=== PATIENT | female | born 1935 | race Caucasian/White ===

== ENCOUNTER 2020-05-25 10:31 | Emergency (ER) | payer MEDICARE, SELFPAY ==
[2020-05-25 10:36] VITALS: BP 129/54; PULSE 88; RESP 18; TEMP 37.4; O2SAT 97
[2020-05-25 10:49] VITALS: BP 129/54; PULSE 88; RESP 18; TEMP 37.4; O2SAT 97
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
== END 2020-05-25 11:08 | disposition home or self-care (01) ==
PROVIDERS: Emergency Provider Nurse Practitioner Family; PCP Internal Medicine
DX: L08.9 Local infection of the skin and subcutaneous tissue, unspecified (principal); S01.80XA Unspecified open wound of other part of head, initial encounter; W22.8XXA Striking against or struck by other objects, initial encounter; J44.9 Chronic obstructive pulmonary disease, unspecified; I10 Essential (primary) hypertension; M48.00 Spinal stenosis, site unspecified; Z87.891 Personal history of nicotine dependence
CPT/HCPCS: 99213; G0463

== ENCOUNTER 2020-05-31 11:33 | Emergency (ER) | payer MEDICARE, SELFPAY ==
[2020-05-31 11:45] VITALS: BP 147/48; PULSE 71; RESP 16; TEMP 36.9; O2SAT 98
[2020-05-31 11:54] VITALS: BP 147/48; PULSE 71; RESP 16; TEMP 36.9; O2SAT 98
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
== END 2020-05-31 12:18 | disposition home or self-care (01) ==
PROVIDERS: Emergency Provider Registered Nurse; PCP Internal Medicine
DX: L08.9 Local infection of the skin and subcutaneous tissue, unspecified (principal); S01.80XD Unspecified open wound of other part of head, subsequent encounter; W22.8XXD Striking against or struck by other objects, subsequent encounter; Z87.891 Personal history of nicotine dependence; J44.9 Chronic obstructive pulmonary disease, unspecified; I10 Essential (primary) hypertension; M48.00 Spinal stenosis, site unspecified
CPT/HCPCS: 99213; G0463